=== PATIENT | male | born 1990 | race Two or more races ===

== ENCOUNTER 2017-11-06 08:43 | Emergency (ER) | payer MEDICAID ==
[~2017-11-06] VITALS: Ht 180.3 cm; Wt 81.6 kg
[2017-11-06 08:48] VITALS: BP 129/71
== END 2017-11-06 09:29 | disposition home or self-care (01) ==
LOC: ER 08:45
DX: F41.9 Anxiety disorder, unspecified (principal); F15.10 Other stimulant abuse, uncomplicated
CPT/HCPCS: 99284; A4606; Z7610

== ENCOUNTER 2018-04-10 05:41 | Emergency (ER) | payer MEDICAID, OTHER ==
[~2018-04-10] VITALS: Ht 180.3 cm; Wt 95.3 kg
--- NOTE | 2018-04-10 06:10 | NUR ---
Pt came to emergency dept. complaining of palpitations that started 2hrs ago. Pt is AXO4. Respirations are even and unlabored. Pt put on the monitor and pulse ox. Pt tachycardic around 150s. Pending eval from ER .
[2018-04-10 06:43] LABS: BASOPHILS # (AUTO) 0.1 /CMM (0.0-0.2); BASOPHILS % (AUTO) 0.4 % (0.0-2.0); EOSINOPHILS % (AUTO) 1.1 % (0.0-6.0); HEMATOCRIT 47 % (39-51); HEMOGLOBIN 16.4 g/dL (13.5-17.5); MEAN CORPUSCULAR HGB CONC 35 g/dl (31.0-36.0); MEAN CORPUSCULAR VOLUME 91 fL (80-96); MONOCYTES # (AUTO) 1.7 /CMM (0.1-1.30); NEUTROPHILS # (AUTO) 12.5 /CMM (1.8-8.9); NEUTROPHILS % (AUTO) 71.5 % (43.0-81.0); PLATELET COUNT (AUTO) 339 /CMM (150-450); RED BLOOD CELL COUNT(AUTO) 5.19 MIL/uL (4.5-6.0); WHITE BLOOD COUNT (AUTO) 17.5 K/uL (4.3-11.0)
[2018-04-10] MEDS: IV NS 0.9% 1,000 ML BAG IV ONE ×2 (06:45→07:39)
[2018-04-10 07:04] LABS: ACETAMINOPHEN < 2 ug/ml (10-30); ALANINE AMINOTRANSFERASE 24 U/L (12-78); ALBUMIN 4.2 g/dL (3.4-5.0); ALCOHOL, BLOOD < 3 mg/dL (0-0); ALKALINE PHOSPHATASE 98 U/L (46-116); ASPARTATE AMINOTRANSFERASE 13 U/L (15-37); BILIRUBIN,DIRECT 0.1 mg/dL (0.0-0.2); BILIRUBIN,TOTAL 0.4 mg/dL (0.2-1.0); CALCIUM, SERUM 8.6 mg/dL (8.5-10.1); CARBON DIOXIDE 28 mmol/L (21-32); CHLORIDE 102 mmol/L (98-107); CREATININE 1.1 mg/dL (0.6-1.3); GLUCOSE 108 mg/dL (74-106); POTASSIUM 3.2 mmol/L (3.5-5.1); SALICYLATE 1.2 mg/dL (2.8-20.0); SODIUM SERUM 143 mmol/L (136-145); TOTAL PROTEIN, SERUM 8.4 g/dL (6.4-8.2); UREA NITROGEN, BLOOD 7 mg/dL (7-18)
--- NOTE | 2018-04-10 07:22 | NUR ---
REPORT GIVEN TO ZAIRE JOSEPH FOR YAN.
--- NOTE | 2018-04-10 07:24 | NUR ---
RECEIVED REPORT FROM JAKE CARMONA FOR YAN, PT IS AAOX4, NOT IN RESPIRATORY DISTRESS, KEPT RESTED AND COMFORTABLE. AWAITING LAB RESULTS.
[2018-04-10 07:30] LABS: APPEARANCE,URINE CLEAR (CLEAR); BILIRUBIN,URINE NEGATIVE (NEGATIVE); BLOOD, URINE NEGATIVE Ery/uL (NEGATIVE); COLOR,URINE YELLOW (YELLOW); KETONES,URINE NEGATIVE (NEGATIVE); LEUKOCYTE ESTERASE ,URINE NEGATIVE (NEGATIVE); NITRITE, URINE NEGATIVE (NEGATIVE); PH,URINE 6.5 (5.0-8.0); PROTEIN,URINE NEGATIVE (NEGATIVE); UGLUCOSE NEGATIVE (NEGATIVE); UROBILINOGEN,URINE 0.2 EU/dL (0.2)
[2018-04-10] MEDS ORDERED: CEFTRIAXONE 1GM BAG (ER ONLY) 50 ML IV ONE (07:32)
[2018-04-10] MEDS: CEFTRIAXONE 1GM BAG (ER ONLY) 50 ML IV ONE (07:39)
--- NOTE | 2018-04-10 07:50 | NUR ---
ADDITIONAL LABS DRAWNED AND SENT TO LAB.
[2018-04-10 09:04] VITALS: BP 103/63
--- NOTE | 2018-04-10 09:04 | NUR ---
IV removed. Catheter intact and site benign. Pressure and 4x4 applied to site. No bleeding noted. Patient discharged to home in stable condition. Written and verbal after care instructions given. Patient verbalizes understanding of instruction.
== END 2018-04-10 09:05 | disposition home or self-care (01) ==
LOC: ER 05:41
DX: R00.2 Palpitations (principal); F41.9 Anxiety disorder, unspecified; F17.200 Nicotine dependence, unspecified, uncomplicated; R00.0 Tachycardia, unspecified; Z60.2 Problems related to living alone
CPT/HCPCS: 36415; 71045-TC; 80048-TC; 80076-TC; 80305; 81000-TC; 83605-TC; 84484-TC; 85025-TC; 87040-TC; 87400; G0480; J0696; J7030

== ENCOUNTER 2018-08-27 02:45 | Emergency (ER) | payer OTHER ==
[~2018-08-27] VITALS: Ht 177.8 cm; Wt 86.2 kg
[2018-08-27 03:05] VITALS: BP 122/78
== END 2018-08-27 03:58 | disposition home or self-care (01) ==
LOC: ER 02:58
DX: S05.02XA Injury of conjunctiva and corneal abrasion without foreign body, left eye, initial encounter (principal); F41.9 Anxiety disorder, unspecified; Z60.2 Problems related to living alone; Z87.891 Personal history of nicotine dependence; X58.XXXA Exposure to other specified factors, initial encounter; Y93.89 Activity, other specified; Y92.89 Other specified places as the place of occurrence of the external cause; Y99.8 Other external cause status
CPT/HCPCS: Z7502